=== PATIENT | female | born 1995 | race Caucasian/White ===

== ENCOUNTER 2018-06-01 00:05 | Emergency (ER) | payer BC ==
[~2018-06-01] VITALS: Ht 167.6 cm; Wt 68.0 kg
[2018-06-01] MEDS ORDERED: IBU800 MG PO (00:10)
[2018-06-01] MEDS ORDERED: CEPHALEXIN500 M1 PO (00:30)
[2018-06-01] MEDS ORDERED: NYSTATIN CREAM15 GM T (00:30)
== END 2018-06-01 01:17 | disposition home or self-care (01) ==
LOC: ED 00:05
DX: N61.0 Mastitis without abscess (principal); Z91.040 Latex allergy status

== ENCOUNTER 2018-06-07 15:53 | Inpatient (IN) | payer BC, OTHER ==
[~2018-06-07] VITALS: Ht 167.6 cm; Wt 69.4 kg
[~2018-06-07 15:53] MED LIST: CEPHALEXIN500 M1 PO; IBU800 MG PO; NYSTATIN CREAM15 GM T
[2018-06-07 15:54] VITALS: BP 118/73
[2018-06-07 17:21] LABS: HEMATOCRIT 39.6 % (37.0-47.0); HEMOGLOBIN 12.5 g/dl (12.0-16.0); MEAN CELL VOLUME 84.4 fl (81.0-99.0); MEAN CORPUSCULAR HGB 26.7 pg (27.0-31.0); MEAN CORPUSCULAR HGB CONC 31.6 g/dl (33.0-37.0); PLATELET COUNT AUTOMATED 258 10*3/uL (130-400); RED BLOOD COUNT 4.69 10*6/uL (4.10-5.10); RED CELL DISTRI WIDTH 14.6 % (0-14.5); WHITE BLOOD COUNT 8.5 10*3/uL (4.8-10.8)
[2018-06-07 17:41] LABS: ALBUMIN 3.8 gm/dl (3.1-4.5); BUN 11 mg/dl (7-24); CHLORIDE 103 mmol/L (98-107); CREATININE 0.75 mg/dL (0.55-1.02); POTASSIUM 3.3 mmol/L (3.5-5.1); SGOT/AST 13 IU/L (3-35); SGPT/ALT 27 U/L (12-78); SODIUM 138 mmol/L (136-145); TOTAL PROTEIN 7.5 gm/dL (6.4-8.2)
[2018-06-07 17:42] LABS: ALKALINE PHOSPHATASE 74 U/L (45-117)
[2018-06-07 17:44] LABS: ATYPICAL LYMPHS 1 % (0-0); PLATELET SUFFICIENCY NORMAL (NORMAL); TOTAL CELLS COUNTED 100 #CELLS
[2018-06-07 20:04] LABS: BILIRUBIN NEGATIVE (NEGATIVE); BLOOD TRACE-INTACT (NEGATIVE); CLARITY SL CLOUDY (CLEAR); COLOR YELLOW (YELLOW); GLUCOSE NEGATIVE (NEGATIVE); KETONE 1+ (NEGATIVE); LEUKO ESTERASE TRACE (NEGATIVE); NITRITE NEGATIVE (NEGATIVE); SPECIFIC GRAVITY 1.015 (1.005-1.030); UROBILINOGEN 0.2 E.U./dl (0.2-1.0)
[2018-06-07 20:09] LABS: BACTERIA 1+; MUCOUS 2+
[2018-06-07 20:10] LABS: RBC 21-30 rbc/hpf (0-2)
[2018-06-07 21:00] VITALS: BP 109/65
[2018-06-07] MEDS ORDERED: CLINDAMYCIN HC300 MG PO (21:10)
[2018-06-07 22:32] VITALS: BP 115/60
[2018-06-08] VITALS: BP 118/69
[2018-06-08] MEDS ORDERED: DIFLUCAN150 MG PO (00:30)
[2018-06-08 06:36] LABS: BASO % 0.2 % (0.0-1.0); EOS % 11.1 % (1.0-4.0); HEMATOCRIT 33.7 % (37.0-47.0); HEMOGLOBIN 10.5 g/dl (12.0-16.0); LYMPH # 0.6 10*3/uL (1.3-4.4); LYMPH % 6.4 % (27.0-41.0); MEAN CELL VOLUME 83.6 fl (81.0-99.0); MEAN CORPUSCULAR HGB 26.1 pg (27.0-31.0); MEAN CORPUSCULAR HGB CONC 31.2 g/dl (33.0-37.0); MEAN PLATELET VOLUME 9.7 fl (9.6-12.3); MONO # 0.4 10*3/uL (0.1-1.0); MONO % 4.4 % (3.0-9.0); NEUT % 77.1 % (47.0-73.0); PLATELET COUNT AUTOMATED 237 10*3/uL (130-400); RED BLOOD COUNT 4.03 10*6/uL (4.10-5.10); RED CELL DISTRI WIDTH 14.7 % (0-14.5)
[2018-06-08 07:10] LABS: ALBUMIN 2.6 gm/dl (3.1-4.5); BUN 11 mg/dl (7-24); CHLORIDE 107 mmol/L (98-107); POTASSIUM 3.3 mmol/L (3.5-5.1); SODIUM 139 mmol/L (136-145)
[2018-06-08 07:22] LABS: ALKALINE PHOSPHATASE 54 U/L (45-117); CREATININE 0.76 mg/dL (0.55-1.02); PHOSPHOROUS 2.7 mg/dL (2.5-4.9); SGOT/AST 15 IU/L (3-35); SGPT/ALT 22 U/L (12-78); TOTAL PROTEIN 5.9 gm/dL (6.4-8.2)
[2018-06-08 07:58] LABS: VITAMIN D, 25-HYDROXY 24.2 ng/mL (30-100)
[2018-06-08 12:00] VITALS: BP 106/59
[2018-06-08 16:00] VITALS: BP 107/66
[2018-06-08 20:00] VITALS: BP 125/74
[2018-06-09] VITALS: BP 119/76
[2018-06-09 06:26] LABS: BASO % 0.1 % (0.0-1.0); EOS # 1.4 10*3/uL (0.0-0.4); EOS % 17.8 % (1.0-4.0); HEMATOCRIT 34.2 % (37.0-47.0); HEMOGLOBIN 10.3 g/dl (12.0-16.0); LYMPH # 1.4 10*3/uL (1.3-4.4); LYMPH % 17.7 % (27.0-41.0); MEAN CELL VOLUME 85.9 fl (81.0-99.0); MEAN CORPUSCULAR HGB 25.9 pg (27.0-31.0); MEAN CORPUSCULAR HGB CONC 30.1 g/dl (33.0-37.0); MEAN PLATELET VOLUME 9.8 fl (9.6-12.3); MONO # 0.4 10*3/uL (0.1-1.0); MONO % 5.3 % (3.0-9.0); NEUT # 4.5 10*3/uL (2.3-7.9); NEUT % 58.8 % (47.0-73.0); PLATELET COUNT AUTOMATED 274 10*3/uL (130-400); RED BLOOD COUNT 3.98 10*6/uL (4.10-5.10); RED CELL DISTRI WIDTH 14.8 % (0-14.5); WHITE BLOOD COUNT 7.7 10*3/uL (4.8-10.8)
[2018-06-09 06:48] LABS: BUN 9 mg/dl (7-24); CHLORIDE 109 mmol/L (98-107); CREATININE 0.67 mg/dL (0.55-1.02); POTASSIUM 3.7 mmol/L (3.5-5.1); SODIUM 141 mmol/L (136-145)
[2018-06-09 08:00] VITALS: BP 101/59
[2018-06-09] MEDS ORDERED: CLEOCIN HCL300 MG PO (11:18)
== END 2018-06-09 12:20 | disposition home or self-care (01) | DRG 776 ==
LOC: ED 15:53 → 5E 23:21 → EDHOLD 23:21 → 5E 23:47
PROVIDERS: Family Medicine; Nurse Practitioner; Podiatrist Primary Podiatric Medicine
DX: O85 Puerperal sepsis (principal); N30.00 Acute cystitis without hematuria; O91.22 Nonpurulent mastitis associated with the puerperium; O90.89 Other complications of the puerperium, not elsewhere classified; O90.81 Anemia of the puerperium; E87.6 Hypokalemia; D50.9 Iron deficiency anemia, unspecified; Z88.2 Allergy status to sulfonamides; Z88.8 Allergy status to other drugs, medicaments and biological substances

== ENCOUNTER 2019-01-08 03:04 | Emergency (ER) | payer OTHER, BC ==
[~2019-01-08] VITALS: Wt 67.1 kg
--- NOTE | ~2019-01-08 | EKG ---
[place], [place] ELECTROCARDIOGRAM REPORT NAME: TIA BIRMINGHMA UNIT #: [id number] ROOM: DOCTOR: CORNELL DRAFT REPORT BIRTHDATE: [birth year] [facility] Test Date: 2019-01-08 Test Time: 08:22:06 Pat Name: TIA BIRMINGHAM Department: Room: Gender: F [employer] Operator: : 1995 Requested By: KRISTEL SAXENA Order Number: [id number] Reading MD: Socrates Jacobsen MD Measurements Intervals [place] Rate: 121 P: 74 VA: 168 QRS: 63 QRSD: 66 T: -59 QT: 337 QTc: 479 Interpretive Statements Sinus tachycardia Abnormal Q suggests anterior infarct Borderline T abnormalities, inferior leads Borderline prolonged QT interval Electronically Signed On 01-09-2019 3:43:57 PDT by Socrates Jacobsen MD CM:EKGRPT:ELECTROCARDIOGRAM REPORT [id number] KRISTEL SARABIA DRAFT REPORT KRISTEL SAXENA M.D.
[~2019-01-08 03:04] MED LIST changes: +CLEOCIN HCL300 MG PO; +CLINDAMYCIN HC300 MG PO; +DIFLUCAN150 MG PO
[2019-01-08 03:43] LABS: BASO % 0.2 % (0.0-1.0); EOS # 0.2 10*3/uL (0.0-0.4); EOS % 1.2 % (1.0-4.0); HEMATOCRIT 41.6 % (37.0-47.0); HEMOGLOBIN 13.3 g/dl (12.0-16.0); LYMPH % 7.7 % (27.0-41.0); MEAN CORPUSCULAR HGB 29.1 pg (27.0-31.0); MONO # 0.5 10*3/uL (0.1-1.0); MONO % 3.5 % (3.0-9.0); NEUT # 11.3 10*3/uL (2.3-7.9); NEUT % 87.1 % (47.0-73.0); PLATELET COUNT AUTOMATED 335 10*3/uL (130-400); RED BLOOD COUNT 4.57 10*6/uL (4.10-5.10); RED CELL DISTRI WIDTH 12.7 % (0-14.5); WHITE BLOOD COUNT 12.9 10*3/uL (4.8-10.8)
[2019-01-08 03:58] LABS: ALBUMIN 4.2 gm/dl (3.1-4.5); ALKALINE PHOSPHATASE 64 U/L (45-117); BUN 10 mg/dl (7-24); CHLORIDE 106 mmol/L (98-107); CREATININE 0.82 mg/dL (0.55-1.02); POTASSIUM 3.5 mmol/L (3.5-5.1); SGOT/AST 8 IU/L (3-35); SGPT/ALT 16 U/L (12-78); SODIUM 141 mmol/L (136-145); TOTAL PROTEIN 7.9 gm/dL (6.4-8.2)
[2019-01-08 06:46] LABS: BILIRUBIN NEGATIVE (NEGATIVE); BLOOD NEGATIVE (NEGATIVE); CLARITY SL CLOUDY (CLEAR); COLOR YELLOW (YELLOW); GLUCOSE NEGATIVE (NEGATIVE); KETONE NEGATIVE (NEGATIVE); LEUKO ESTERASE NEGATIVE (NEGATIVE); NITRITE NEGATIVE (NEGATIVE); PH 7.5 (5.0-9.0); SPECIFIC GRAVITY 1.015 (1.005-1.030); UROBILINOGEN 0.2 E.U./dl (0.2-1.0)
[2019-01-08 06:58] LABS: BACTERIA 2+; EPITHELIAL CELLS 16-20; MUCOUS 2+
== END 2019-01-08 11:40 | disposition home or self-care (01) ==
LOC: ED 03:04
PROVIDERS: Emergency Medicine
DX: R11.2 Nausea with vomiting, unspecified (principal); T36.8X5A Adverse effect of other systemic antibiotics, initial encounter; R51 Headache; R20.2 Paresthesia of skin; M79.662 Pain in left lower leg; M79.661 Pain in right lower leg; R00.0 Tachycardia, unspecified; F41.9 Anxiety disorder, unspecified; Z88.2 Allergy status to sulfonamides; Z91.040 Latex allergy status; Y92.89 Other specified places as the place of occurrence of the external cause